=== PATIENT | female | born 1995 | race Caucasian/White ===

== ENCOUNTER 2023-09-15 09:25 | Emergency (ER) | payer BC ==
[2023-09-15] MEDS: Sodium Chloride 0.9% 100 ML IV SCH (10:24)
[2023-09-15] MEDS: Iopamidol 755 Mg/ML 100 ML Bottle IVPUSH ONE (10:24)
[2023-09-15] MEDS: Sodium Chloride 0.9% 10 ML Syringe FLUSH ONE (10:24)
[2023-09-15 10:58] LABS: BASOPHILS PERCENT AUTO 0.1 % (0.0-1.0); EOSINOPHILS PERCENT AUTO 0.2 % (0.0-6.0); HEMATOCRIT 34.5 % (37.0-47.0); HEMOGLOBIN 11.7 gm/dl (12.0-16.0); IMMATURE GRAN ABSOLUTE AUTO 0.06 K/mm3 (0.00-0.05); IMMATURE GRAN PERCENT AUTO 0.6 % (0.0-0.4); LYMPHOCYTES ABSOLUTE AUTO 1.8 K/mm3 (1.0-4.8); LYMPHOCYTES PERCENT AUTO 17.4 % (24.0-44.0); MEAN CORPUSCULAR HEMOGLOBIN 29.2 pg (28.0-32.0); MEAN CORPUSCULAR HGB CONC 33.9 g/dl (32.0-36.0); MEAN PLATELET VOLUME 9.4 fl (9.4-12.3); MONOCYTES ABSOLUTE AUTO 0.5 K/mm3 (0.0-0.8); MONOCYTES PERCENT AUTO 4.9 % (0.0-8.0); NEUTROPHILS ABSOLUTE AUTO 7.8 K/mm3 (1.8-7.7); NEUTROPHILS PERCENT AUTO 76.8 % (41.0-71.0); PLATELET COUNT,PLT 230 K/mm3 (150-400); RED BLOOD CELL COUNT 4.01 M/mm3 (4.10-5.30); WHITE BLOOD CELL COUNT,WBC 10.14 K/mm3 (3.9-11.3)
[2023-09-15 11:07] LABS: A/G RATIO 0.7 (1-2); ALANINE AMINOTRANSFERASE,ALT 25 U/L (14-59); ALBUMIN 2.7 g/dl (3.4-5.0); ALKALINE PHOSPHATASE 113 U/L (46-116); ASPARTATE AMNIOTRANSFERASE,AST 15 U/L (15-37); BILIRUBIN TOTAL 0.3 mg/dL (0.2-1.0); BLOOD UREA NITROGEN,BUN 7 mg/dL (7-18); CALCIUM 8.7 mg/dL (8.5-10.1); CARBON DIOXIDE,CO2 23 mEq/L (21-32); CHLORIDE,CL 102 mEq/L (98-107); CREATININE 0.7 mg/dL (0.55-1.02); EST CRCL DRUG DOSING (CG) 99.86 mL/min; ESTIMATED GFR 121 mL/min (>60); GLUCOSE RANDOM 77 mg/dL (70-99); PROTEIN TOTAL,TP 6.7 g/dl (6.4-8.2); SODIUM,NA 135 mEq/L (136-145)
[2023-09-15 11:08] LABS: TROPONIN I HIGH SENSITIVITY < 4 pg/mL (<=51)
[2023-09-15 11:09] LABS: INR 0.93
[2023-09-15 11:11] LABS: PTT,PARTIAL THROMBOPLSTIN TIME 29.1 SECONDS (21.7-31.4)
== END 2023-09-15 12:40 | disposition home or self-care (01) ==
LOC: JD.ED 09:25
DX: O99.353 Diseases of the nervous system complicating pregnancy, third trimester (principal); G43.909 Migraine, unspecified, not intractable, without status migrainosus; Z3A.33 33 weeks gestation of pregnancy; Z79.899 Other long term (current) drug therapy; Z88.0 Allergy status to penicillin; Z88.1 Allergy status to other antibiotic agents; Z88.8 Allergy status to other drugs, medicaments and biological substances; Z88.6 Allergy status to analgesic agent
CPT/HCPCS: 36415; 70450; 70496; 70498; 80053; 82947; 84484; 85025; 85610; 85730; 93005; 99284; J3490; Q9967; 93010

== ENCOUNTER 2023-11-03 18:31 | Inpatient (IN) | payer BC ==
[2023-11-03] MEDS ORDERED: Acetaminophen 325 MG Tab PO PRN (19:08)
[2023-11-03] MEDS ORDERED: Lidocaine 1% 50 ML MDV INJECT PRN (19:08)
[2023-11-03] MEDS ORDERED: Ondansetron 4 MG/2 ML SDV IVPUSH PRN (19:08)
[2023-11-03] MEDS ORDERED: Sodium Chloride 0.9% 10 ML Syringe FLUSH PRN (19:08)
[2023-11-03] MEDS ORDERED: Nalbuphine 10 MG/ML Syringe IVPUSH PRN (19:08)
[2023-11-03] MEDS ORDERED: Oxytocin/0.9 % Sodium Chloride 30 UNIT/500 ML BAG IV SCH ×2 (19:15)
[2023-11-03 19:32] LABS: BASOPHILS PERCENT AUTO 0.1 % (0.0-1.0); EOSINOPHILS PERCENT AUTO 0.3 % (0.0-6.0); HEMATOCRIT 35.8 % (37.0-47.0); IMMATURE GRAN ABSOLUTE AUTO 0.05 K/mm3 (0.00-0.05); IMMATURE GRAN PERCENT AUTO 0.4 % (0.0-0.4); LYMPHOCYTES ABSOLUTE AUTO 2.3 K/mm3 (1.0-4.8); LYMPHOCYTES PERCENT AUTO 19.9 % (24.0-44.0); MEAN CORPUSCULAR HEMOGLOBIN 28.6 pg (28.0-32.0); MEAN CORPUSCULAR HGB CONC 33.5 g/dl (32.0-36.0); MEAN CORPUSCULAR VOLUME 85.4 fl (83.0-99.0); MEAN PLATELET VOLUME 9.9 fl (9.4-12.3); MONOCYTES ABSOLUTE AUTO 0.6 K/mm3 (0.0-0.8); MONOCYTES PERCENT AUTO 5.5 % (0.0-8.0); NEUTROPHILS ABSOLUTE AUTO 8.5 K/mm3 (1.8-7.7); NEUTROPHILS PERCENT AUTO 73.8 % (41.0-71.0); PLATELET COUNT,PLT 219 K/mm3 (150-400); RED BLOOD CELL COUNT 4.19 M/mm3 (4.10-5.30); WHITE BLOOD CELL COUNT,WBC 11.47 K/mm3 (3.9-11.3)
[2023-11-03] MEDS ORDERED: Sodium Chloride 0.9% 10 ML Syringe FLUSH SCH (21:00)
[2023-11-03] MEDS: Lactated Ringers 1,000 ML IV SCH (22:03)
[2023-11-03] MEDS ORDERED: ePHEDrine 50 MG/ML SDV IVPUSH PRN (22:29)
[2023-11-03] MEDS ORDERED: Bupivacaine/fentaNYL/NS 100 ML Bag EPIDUR PRN (22:29)
[2023-11-03] MEDS ORDERED: fentaNYL 100 MCG/2 ML SDV EPIDUR PRN (22:29)
[2023-11-03] MEDS ORDERED: diphenhydrAMINE 50 MG/ML SDV IVPUSH PRN (22:29)
[2023-11-03] MEDS ORDERED: fentaNYL 100 MCG/2 ML SDV ONE (22:34)
[2023-11-04] MEDS ORDERED: Bupivacaine 0.25% 10 ML SDV ONE
[2023-11-04] MEDS ORDERED: Witch Hazel Medicated Pads 40/Jar TOP PRN ×2 (03:39)
[2023-11-04] MEDS ORDERED: Acetaminophen 325 MG Tab PO PRN (03:39)
[2023-11-04] MEDS ORDERED: Benzocaine/Menthol 20%-0.5% Spray 78 GM Cannister TOP PRN ×2 (03:39)
== END 2023-11-05 12:00 | disposition home or self-care (01) | DRG 560 ==
LOC: JD.OB 18:31 → OBSVTOIN 11-04 02:50 → JD.OB 11-04 02:51
PROVIDERS: ADMIT Obstetrics & Gynecology; ATTEND Obstetrics & Gynecology
PROC: 10E0XZZ Delivery of Products of Conception, External Approach (ICD-10-PCS; principal; 2023-11-04)
PROC: 10907ZC Drainage of Amniotic Fluid, Therapeutic from Products of Conception, Via Natural or Artificial Opening (ICD-10-PCS; 2023-11-04)
PROC: 3E0R3BZ Introduction of Anesthetic Agent into Spinal Canal, Percutaneous Approach (ICD-10-PCS; 2023-11-04)
PROC: 00HU33Z Insertion of Infusion Device into Spinal Canal, Percutaneous Approach (ICD-10-PCS; 2023-11-04)
PROC: 3E033VJ Introduction of Other Hormone into Peripheral Vein, Percutaneous Approach (ICD-10-PCS; 2023-11-04)
PROC: 0KQM0ZZ Repair Perineum Muscle, Open Approach (ICD-10-PCS; 2023-11-04)
DX: O48.0 Post-term pregnancy (principal); Z37.0 Single live birth; O99.354 Diseases of the nervous system complicating childbirth; G43.909 Migraine, unspecified, not intractable, without status migrainosus; O70.1 Second degree perineal laceration during delivery; Z88.0 Allergy status to penicillin; Z88.1 Allergy status to other antibiotic agents; Z88.8 Allergy status to other drugs, medicaments and biological substances; Z3A.40 40 weeks gestation of pregnancy
CPT/HCPCS: 36415; 59025; 85025; 86592; 86850; 86900; 86901; J0665; J7120